=== PATIENT | female | born 1980 | race Caucasian/White ===

== ENCOUNTER 2018-06-10 20:19 | Observation (INO) ==
[2018-06-10 21:12] LABS: BASO# 0.05 X1000 (0.0-0.2); BASO% 0.3 % (0.0-0.8); EOS% 0.7 % (0.0-10.0); HEMATOCRIT 44.9 % (37.0-47.0); HEMOGLOBIN 15.7 g/dL (12.0-16.0); IMM GRAN# 0.07 X1000 (0.0-0.04); IMM GRAN% 0.5 % (0.0-0.5); LYMPH# 5.34 X1000 (1.2-3.4); LYMPH% 35.4 % (20.5-51.1); MCH 32.4 PG (27-31); MCV 92.6 FL (81-99); MONO# 0.75 X1000 (0.11-0.59); MPV 9.8 FL (7.4-10.4); NEUT# 8.77 X1000 (1.4-6.5); NEUT% 58.1 % (42.2-75.2); PLT 400 X1000 (130-400); RBC 4.85 XMIL (4.2-5.4); WBC 15.08 X1000 (4.8-10.8)
--- NOTE | 2018-06-10 21:13 | PROVIDER DOCUMENTATION ---
This chart was entered by Fina Rodriguez Scribe, acting as scribe for Altaf Edge MD. HPI-Psychological Disorder - General Chief Complaint: Overdose Stated Complaint: OVERDOSE Time Seen by Provider: 06/10/18 20:57 Source: patient, family Allergies/Adverse Reactions: Patient Allergies Allergy/AdvReac Type Severity Reaction Status Date / Time No Known Allergies Allergy Verified 12/01/17 23:47 Home Medications: Home Medication List Medication Instructions Recorded Confirmed Last Taken Type Alprazolam [Xanax] 0.5 mg PO 4XDAY PRN 07/19/13 12/01/17 12/01/17 22:00 History Duloxetine [Cymbalta] 20 mg PO DAILY 07/19/13 12/01/17 12/01/17 07:00 History Zolpidem [Ambien] 10 mg PO QHS 07/19/13 12/01/17 12/01/17 22:00 History - History of Present Illness-Psych Nature of Presenting Problem: pt is a 37 yr old white female with history of depression,anxiety, HTN, and multiple suicide attempts presenting with complaint of intentional overdose, pt reports she took up to 15 12.5mg Ambien at 7pm tonight. Patient also drank up to 10 12oz beers tonight. Patient arrives by private car with drowsiness and GCS of 15. Psychiatric Complaints: reports: depressed, suicidal ideation. denies: homicidal thoughts Previous psych related hospitalizations?: Yes Patient arrived by:: private car Similar Symptoms Previously?: Yes Recently seen or treated by another doctor?: No Review of Systems - Adult - REVIEW OF SYSTEMS - ADULT Constitutional: denies: chills, fever Eyes: denies: blurred vision Ears, Nose, Mouth & Throat: denies: ear discharge, hearing loss, tinnitus, throat pain Cardiovascular: denies: chest pain Respiratory: reports: see HPI, shortness of breath Gastrointestinal: denies: abdominal pain, nausea, vomiting Genitourinary: reports: dysuria Musculoskeletal: reports: no symptoms reported Integumentary: reports: no symptoms reported Neurological: reports: no symptoms reported Psychiatric: reports: anxiety Endocrine: reports: no symptoms reported Hematologic/Lymphatic: reports: no symptoms reported Allergic/Immunologic: reports: no symptoms reported, see HPI All Other Systems: Reviewed and Negative Past History - Adult - PAST MEDICAL HISTORY-ADULT Review of Records: reports: Old Records Reviewed, Nursing Assessment Review, Medications Reviewed, Social history reviewed & non-contributory. Major Childhood Illnesses: reports: denies history Cardiovascular: reports: denies history Respiratory: reports: denies history Gastrointestinal: reports: denies history Obstetrical/Gynecological: reports: denies history Genitourinary: reports: denies history Musculoskeletal: reports: denies history Neurological: reports: denies history Psychiatric: reports: anxiety, depression, suicide attempt Endocrine/Immune: reports: denies history Other Conditions: reports: denies history - PRIOR SURGERIES/PROCEDURES Surgical/Procedure History: reports: reviewed, not pertinent - IMMUNIZATION STATUS Childhood Immunizations: See Nurse Assessment Flu Vaccine: See Nurse Assessment - FAMILY HISTORY Family History: reviewed, not pertinent - SOCIAL HISTORY Smoking: cigarettes Provider spent 3-5 mins advising pt. on dangers of tobacco.: Discussed manners to quit use, and f/u contacts for add'l counseling. Living Situation: family Physical Exam-Psych Focus - Physical Exam-Psych Initial Vital Signs Reviewed: Yes Appearance: no apparent distress, alert Neurological: depressed affect Behavior/Eye Contact/Speech: cooperative, avoids eye contact, decreased rate of speech Thoughts/Hallucinations: no apparent hallucination HENMT: normocephalic/atraumatic, moist mucous membranes, normal ENT inspection Neck: non-tender, full range of motion, supple, normal inspection Respiratory: chest non-tender, lungs clear, normal breath sounds Cardiovascular: normal peripheral pulses, no edema, tachycardia Abdominal Exam: normal bowel sounds, non tender, soft Lymphatic: no adenopathy Back Exam: normal inspection, no CVA tenderness, no vertebral tenderness Extremity: normal range of motion, non-tender, normal gait, normal inspection Integumentary: normal color, normal turgor, warm/dry Progress - PLAN OF CARE/RESULTS Progress/Plan/Lab Results: Vital Signs - 8 hr 06/10/18 20:53 06/10/18 20:57 Temperature 98.5 F Pulse Rate 125 H 117 H Respiratory Rate 21 24 Blood Pressure 174/122 182/150 O2 Sat by Pulse Oximetry 96 95 Bedside Urine ED: Urine Bedside Start: 06/10/18 21:06 Freq: ORDERED Status: Inactive Protocol: Activity Type Activity Date Activity User E-Sign Co-Sign Detail Recorded Client Recorded Date Recorded By Edit Status 06/10/18 22:20 [id number] Active=>Inactive [id number] 06/10/18 22:20 [id number] Laboratory Results - last 24 hr 06/10/18 06/10/18 06/10/18 20:35 20:35 20:35 WBC 15.08 H RBC 4.85 Hgb 15.7 Hct 44.9 MCV 92.6 MCH 32.4 H MCHC 35.0 RDW Std Deviation 13.0 Plt Count 400 MPV 9.8 Immature Gran % (Auto) 0.5 Neut % (Auto) 58.1 Lymph % (Auto) 35.4 [place] % (Auto) 5.0 Eos % (Auto) 0.7 Baso % (Auto) 0.3 Immature Gran # (Auto) 0.07 H Neut # (Auto) 8.77 H Lymph # (Auto) 5.34 H [place] # (Auto) 0.75 H Eos # (Auto) 0.10 Baso # (Auto) 0.05 Specimen Type Sample Site pH pCO2 pO2 HCO3 Base Excess Oxyhemoglobin ABG O2 Sat (Calculated) ABG O2 Saturation ABG Carboxyhemoglobin ABG Methemoglobin Primo Test A-a O2 Difference Total Hemoglobin Lactate Blood Gas Modality FiO2 % Sodium 142 Potassium 3.8 Chloride 107 Carbon Dioxide 21 L Anion Gap 14 BUN 6 L Creatinine 0.7 Estimated GFR/1.73 m2 > 60 BUN/Creatinine Ratio 9 Glucose 140 H Calculated Osmolality 283 Calcium 9.8 Total Bilirubin 0.20 AST 21 ALT 22 Alkaline Phosphatase 96 Total Protein 7.9 Albumin 4.7 Globulin 3.0 Albumin/Globulin Ratio 1.0 Urine Test Salicylates < 3.00 L Urine Opiates Screen Ur Oxycodone Screen Urine Methadone Screen U Propoxyphene Qual Acetaminophen Ur Barbituates Screen Ur Tricyclics Screen Ur Phencyclidine Scrn Ur Amphetamines Screen U Methamphetamines Scrn U Benzodiazepines Scrn Urine Cocaine Screen U Cannabinoids Screen Plasma/Serum Ethyl Alc 198 H 06/10/18 06/10/18 06/10/18 20:35 20:50 20:50 WBC RBC Hgb Hct MCV MCH MCHC RDW Std Deviation Plt Count MPV Immature Gran % (Auto) Neut % (Auto) Lymph % (Auto) [place] % (Auto) Eos % (Auto) Baso % (Auto) Immature Gran # (Auto) Neut # (Auto) Lymph # (Auto) [place] # (Auto) Eos # (Auto) Baso # (Auto) Specimen Type Sample Site pH pCO2 pO2 HCO3 Base Excess Oxyhemoglobin ABG O2 Sat (Calculated) ABG O2 Saturation ABG Carboxyhemoglobin ABG Methemoglobin Primo Test A-a O2 Difference Total Hemoglobin Lactate Blood Gas Modality FiO2 % Sodium Potassium Chloride Carbon Dioxide Anion Gap BUN Creatinine Estimated GFR/1.73 m2 BUN/Creatinine Ratio Glucose Calculated Osmolality Calcium Total Bilirubin AST ALT Alkaline Phosphatase Total Protein Albumin Globulin Albumin/Globulin Ratio Urine Test NEGATIVE Salicylates Urine Opiates Screen NONE DETECTED Ur Oxycodone Screen NONE DETECTED Urine Methadone Screen NONE DETECTED U Propoxyphene Qual NONE DETECTED Acetaminophen < 1.2 L Ur Barbituates Screen NONE DETECTED Ur Tricyclics Screen NONE DETECTED Ur Phencyclidine Scrn NONE DETECTED Ur Amphetamines Screen NONE DETECTED U Methamphetamines Scrn NONE DETECTED U Benzodiazepines Scrn NONE DETECTED Urine Cocaine Screen NONE DETECTED U Cannabinoids Screen NONE DETECTED Plasma/Serum Ethyl Alc 06/10/18 21:21 WBC RBC Hgb Hct MCV MCH MCHC RDW Std Deviation Plt Count MPV Immature Gran % (Auto) Neut % (Auto) Lymph % (Auto) [place] % (Auto) Eos % (Auto) Baso % (Auto) Immature Gran # (Auto) Neut # (Auto) Lymph # (Auto) [place] # (Auto) Eos # (Auto) Baso # (Auto) Specimen Type ARTERIAL Sample Site R BRACHIAL pH 7.36 pCO2 34 L pO2 75 HCO3 20.4 Base Excess -5.3 L Oxyhemoglobin 86.0 L* ABG O2 Sat (Calculated) 18.6 ABG O2 Saturation 96.2 ABG Carboxyhemoglobin 9.60 H* ABG Methemoglobin 1.0 Primo Test NO A-a O2 Difference 32.0 Total Hemoglobin 15.4 Lactate 2.60 H Blood Gas Modality ROOM AIR FiO2 % 21.0 Sodium Potassium Chloride Carbon Dioxide Anion Gap BUN Creatinine Estimated GFR/1.73 m2 BUN/Creatinine Ratio Glucose Calculated Osmolality Calcium Total Bilirubin AST ALT Alkaline Phosphatase Total Protein Albumin Globulin Albumin/Globulin Ratio Urine Test Salicylates Urine Opiates Screen Ur Oxycodone Screen Urine Methadone Screen U Propoxyphene Qual Acetaminophen Ur Barbituates Screen Ur Tricyclics Screen Ur Phencyclidine Scrn Ur Amphetamines Screen U Methamphetamines Scrn U Benzodiazepines Scrn Urine Cocaine Screen U Cannabinoids Screen Plasma/Serum Ethyl Alc Orders Category Date Time Status Admit - [facility] Routine AdmDCTranf 06/10/18 22:20 Active Activity - Strict Bedrest ORDERED Care 06/10/18 22:20 Active Cardiac Monitoring DIRECTED Care 06/10/18 21:04 Completed Misc. NRSG Communication Order DIRECTED Care 06/10/18 21:04 Active Misc. NRSG Communication Order DIRECTED Care 06/10/18 22:22 Active Neurological Check Q4H Care 06/10/18 22:21 Active Resuscitation Status Routine Care 06/10/18 22:20 Ordered Vital Signs Order ROUTINE Care 06/10/18 22:20 Active Z-Document. for Tele Applied ORDERED Care 06/10/18 22:22 Active NPO Diet 06/10/18 22:22 Active ABG [RESP] Routine Lab 06/10/18 21:21 Completed ACETAMINOPHEN [TDM] Stat Lab 06/10/18 20:35 Completed ALCOHOL BLOOD Stat Lab 06/10/18 20:35 Completed CBC WITH ELECTRONIC DIFF [HEME] Stat Lab 06/10/18 20:35 Completed CMP [COMPREHENSIVE METABOLIC PANEL] [CHEM] Stat Lab 06/10/18 20:35 Completed TEST-URINE [PREG] Stat Lab 06/10/18 20:50 Completed SALICYLATES [TDM] Stat Lab 06/10/18 20:35 Completed URINE DRUG SCREEN PL Stat Lab 06/10/18 20:50 Completed 0.9% Sodium Chloride Inj [Ns] 1,000 ml Med 06/10/18 22:20 Active IV 100 mls/hr Telemetry [OM.EQ] Routine Oth 06/10/18 22:20 Active Transfer/Admit Order [TRANSFER] Routine Transfer 06/10/18 22:22 Completed Result Diagrams: 06/10/18 20:35 06/10/18 20:35 Departure - Departure Date of Disposition Decision: 06/10/18 Time of Disposition Decision: 23:45 DIAGNOSIS: Drug overdose, Severe depression Alcohol intoxication Qualifiers: Complication of substance-induced condition: uncomplicated Qualified Code(s): F10.920 - Alcohol use, unspecified with intoxication, uncomplicated Disposition: ADMITTED INPATIENT 09 Certified Medical Emergency: Emergent Condition: Stable - Critical Care Note This patient required my direct & personal management of CC.: Yes Attestation - Physician/ JEFF Attestation Patient care was provided by Advanced Practice Provider:: No The physician spent face to face time with patient:: Yes Advanced Practice Provider documentation review:: Supervising physician onsite and consulted in the evaluation and care of this patient. The physician did have a face to face encounter with the patient. This chart was documented by the indicated scribe, (Fina Rodriguez Scribe) and accurately reflects the services I performed and decisions made by me, Altaf Edge MD, as attested by the provider's signature.
[2018-06-10 21:23] LABS: AGAP 14; ALBUMIN 4.7 g/dL (3.5-5.0); ALKALINE PHOSPHATASE 96 U/L (32-104); BUN 6 mg/dL (8-22); CALCIUM 9.8 mg/dL (8.8-10.2); CHLORIDE 107 mmol/L (98-107); COSMO 283; CREATININE 0.7 mg/dL (0.5-0.9); ESTIMATED GFR > 60; GLUCOSE 140 mg/dL (70-104); GOT 21 U/L (10-30); GPT 22 U/L (10-36); POTASSIUM 3.8 mmol/L (3.5-5.1); SALICYLATES < 3.00 mg/dL (3-10); SODIUM 142 mmol/L (136-145); TCO2 21 mmol/L (25-35); TOTAL PROTEIN 7.9 g/dL (6.3-8.3)
[2018-06-10 21:29] LABS: UR AMPHETAMINES QUAL NONE DETECTED (NONE DETECT); UR BARBITUATES QUAL NONE DETECTED (NONE DETECT); UR BENZODIAZEPIN QUAL NONE DETECTED (NONE DETECT); UR CANNABINOIDS QUAL NONE DETECTED (NONE DETECT); UR COCAINE QUAL NONE DETECTED (NONE DETECT); UR METHADONE QUAL NONE DETECTED (NONE DETECT); UR METHAMPHETAMINE QUAL NONE DETECTED (NONE DETECT); UR OPIATES QUAL NONE DETECTED (NONE DETECT); UR OXYCODONE QUAL NONE DETECTED (NONE DETECT); UR PCP QUAL NONE DETECTED (NONE DETECT); UR PROPOXYPHENE QUAL NONE DETECTED (NONE DETECT); UR TCA QUAL NONE DETECTED (NONE DETECT)
[2018-06-10 21:34] LABS: BE -5.3 mmoll (-3.0-3.0); BLOOD TYPE ARTERIAL; HCO3-(ACT) 20.4 mmoll (20.0-26.0); O2(CT) 18.6 mL/dL (15.0-23.0); PCO2(98.6) 34 mmHg (35-45); PO2(98.6) 75 mmHg (60-100); SAMPLE BLOOD; SAO2 96.2 % (95.0-100.0); THB 15.4 g/dL (11.5-17.4); pH(98.6) 7.36 (7.35-7.45)
[2018-06-10 21:39] LABS: ALLEN TEST NO; MODALITY ROOM AIR
[2018-06-10] MEDS ORDERED: NS 1,000 ML IV ONE (22:20)
[2018-06-11 01:47] LABS: BILIRUBIN URINE NEGATIVE (NEGATIVE); BLOOD URINE NEGATIVE (NEGATIVE); CLARITY CLEAR (CLEAR); COLOR YELLOW; GLUCOSE URINE NEGATIVE (NEGATIVE); KETONE URINE NEGATIVE (NEGATIVE); LEUKOCYTES URINE NEGATIVE (NEGATIVE); NITRITE URINE NEGATIVE (NEGATIVE); PH URINE 6.5; PROTEIN URINE NEGATIVE (NEGATIVE); UROBILINOGEN URINE NORMAL
[2018-06-11 01:48] LABS: URINE SOURCE CATH
[2018-06-11 01:53] LABS: URINE RBC <10 /HPF (<10); URINE WBC <10 /HPF (<10)
[2018-06-11 01:54] LABS: URINE BACTERIA NEGATIVE /HFP; URINE EPITHELIAL CELLS <10 /HPF (<10)
[2018-06-11 10:06] LABS: AGAP 11; BUN 9 mg/dL (8-22); CALCIUM 9.2 mg/dL (8.8-10.2); CHLORIDE 107 mmol/L (98-107); COSMO 280; CREATININE 0.7 mg/dL (0.5-0.9); ESTIMATED GFR > 60; GLUCOSE 125 mg/dL (70-104); SODIUM 140 mmol/L (136-145); TCO2 22 mmol/L (25-35)
[2018-06-11] MEDS ORDERED: NS 1,000 ML IV ONE (10:58)
[2018-06-11] MEDS ORDERED: NICODERM PATCH TD SCH (11:00)
--- NOTE | 2018-06-11 11:28 | HISTORY AND PHYSICAL ---
PRIMARY CARE PHYSICIAN: Arlene Davalos MD. CHIEF COMPLAINT: Suicide attempt. HISTORY OF PRESENT ILLNESS: Mrs. Garcia is a 37-year-old female with a history of anxiety and depression with suicidality in the past, who presents to the ER with intentional overdose with the intent for suicide. Apparently, she took around 10-15 Ambien pills then had up to 10 beers yesterday. Her brought her to the ER after he found out what happened, she had multiple bouts of vomiting in the ER and was altered but overall was hemodynamically stable, and she was placed in the ICU after admission. When asked the reasoning for suicidality, she would only tell us that she had "a bad day" yesterday. She is not very forthcoming with underlying etiology or psychosocial stressors, her , who is at the bedside, states that her father was murdered when she was 14 and this month arteaga anniversary for that time and that could be contributing. Currently, she denies any symptoms. She is resting in bed comfortably eating breakfast. A [facility] consult has been placed. PAST MEDICAL HISTORY: 1. Previous suicide attempts in the past. 2. Anxiety and depression. 3. Nicotine dependence. PAST SURGICAL HISTORY: None. SOCIAL HISTORY: Smokes a pack a day. Denies illicit drug use. Reports social alcohol use. She is . is at the bedside. They have a 14-year-old daughter, she stays at home. FAMILY HISTORY: Father from gunshot wound. He had a history of illicit drug use as well apparently. HOME MEDICATIONS: Xanax 0.5 mg p.o. 4 times a day as needed, Cymbalta 20 mg daily, Ambien 10 mg p.o. at bedtime. ALLERGIES: No known drug allergies. REVIEW OF SYSTEMS: Full 14-point review of systems obtained and found to be negative with the exception of the HPI. PHYSICAL EXAMINATION: VITAL SIGNS: Blood pressure is 180/95, heart rate is 110, respiratory rate is 23, O2 saturation 97% on room air, temperature is 98 degrees Fahrenheit. GENERAL: This is an overweight female lying in the hospital bed watching TV, eating breakfast, in no acute distress. NEUROLOGICAL: She is awake. She is alert, and oriented x3. PSYCHIATRIC: Affect is somewhat flat. HEENT: Head is atraumatic and normocephalic. Her pupils are equal, round, and reactive to light. Oral mucosa is moist. NECK: Trachea is midline. There is no JVD. CHEST: Clear to auscultation. CARDIOVASCULAR: Regular rate and rhythm. S1 and S2 is noted. No murmurs, gallops, clicks, or rubs. GASTROINTESTINAL: Soft, nondistended, nontender. Bowel sounds positive. EXTREMITIES: No edema, clubbing, or cyanosis. Pulses are 2+ bilaterally. DIAGNOSTIC DATA: WBC 15.0, hemoglobin 15.7, hematocrit 44.9, platelet count 400. ABG in room air: pH 7.36, CO2 34, O2 75, bicarbonate 20.4, oxyhemoglobin 86, carboxyhemoglobin 9.6. Lactic acid is 2.6. Chemistry: Sodium 142, potassium 3.8, chloride 107, CO2 21, anion gap 14, BUN 6, creatinine 0.7, glucose is 140. LFTs within normal limits. Urinalysis is negative. test is negative. Toxicology is negative with the exception of alcohol, which is 198. IMAGING: None. ASSESSMENT AND PLAN: 1. Suicide attempt: Currently, the patient denies any suicidality. She denies thoughts of hurting other people. We will consult [facility] for any psychiatric input and hold her psychiatric medications for now. We will make sure and provide her with suicide prevention information. We have also advised her against the use of alcohol products as those can exacerbate depression and suicidality. 2. Leukocytosis: Likely reactive, no nidus of infection noted at this time. We will check a CBC again to make sure that this is improved. 3. 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 4. Nicotine dependence. We have advised her against the use of nicotine products. Will write a nicotine patch. Continue cessation education. 5. Alcohol abuse: Level 198. We will recheck to make sure that this has cleared, we have discussed with her the importance of alcohol discontinuation. Repeat ETOH 0. 6. Further recommendations to follow, deep venous thrombosis prophylaxis not needed as the patient is ambulatory. ADDENDUM TO H&P: 1200: [facility] has evaluated Mrs. Garcia and feel that inpatient admission is required due to her suicide attempt. They have stated if she does not transfer willingly, they ([facility]) will order a court hold and have her committed. Mrs. Garcia initially refused to go and became tearful and angry. We were eventually able to calm her down and she agreed to go of her own free will. All of her vitals are stable and repeat labs are unremarkable. IV and stringer catheter will be discontinued and she will be transferred to the care of [facility]. Dictated by AURELIA Glover for Topher Lora MD cc: AURELIA Glover MD Kathy J. Sparacino, MD [facility]
[2018-06-11 11:52] LABS: HEMOGLOBIN 14.4 g/dL (12.0-16.0); MCH 31.6 PG (27-31); MCHC 33.5 g/dL (33-37); MCV 94.5 FL (81-99); MPV 9.5 FL (7.4-10.4); RBC 4.55 XMIL (4.2-5.4); RDW 13.1 % (11.5-14.5); WBC 16.49 X1000 (4.8-10.8)
[2018-06-11] MEDS ORDERED: TYLENOL PO PRN (14:03)
--- NOTE | 2018-06-11 14:56 | EKG Report ---
Test Performed on : 06/10/2018 8:34:24 PM Test Reason : OD Blood Pressure : / mmHG Vent. Rate : 117 BPM Atrial Rate : 117 BPM P-R Int : 164 ms QRS Dur : 080 ms QT Int : 326 ms P-R-T Axes : 045 007 029 degrees QTc Int : 454 ms Sinus tachycardia. Possible Left atrial enlargement Left ventricular hypertrophy Abnormal ECG When compared with ECG of 19-JUL-2013 04:56, No significant change was found Unconfirmed Result
[2018-06-11 15:05] VITALS: BP 140/92
--- NOTE | 2018-06-12 00:01 | HISTORY AND PHYSICAL ---
ADDENDUM: Patient seen and examined by myself. Full note dictated and discussed with nurse practitioner. Patient is a 37-year-old female who, unfortunately, took an intentional overdose of Ambien, stating that she wanted to hurt herself. We will admit her to the hospital. Will observe until Ambien has cleared, then we will consult [facility]. cc: Topher Lora MD
--- NOTE | 2018-06-12 07:31 | DISCHARGE SUMMARY ---
ADMISSION DATE: 06/11/2018 DISCHARGE DATE: 06/11/2018 DISCHARGE DIAGNOSES: 1. Depression. 2. Acute suicide attempt in a patient multiple previous suicide attempts. 3. Chronic anxiety. 4. Chronic depression. CONSULTATIONS: [facility]. PROCEDURES: None. BRIEF HOSPITAL COURSE: The patient is a 37-year-old female who presented to the hospital secondary to an intentional overdose with Ambien. Thankfully, she had an uneventful hospital course. Currently, she is awake, alert. Vital signs are stable. DISPOSITION: Patient is awake. She is alert. She is in no distress. [facility] was consulted and feels that she needs to be transitioned to [facility] to assist with her depression and suicide attempt. Therefore she will be discharged and further disposition made from [facility]. cc: Topher Lora MD
== END 2018-06-11 15:40 ==
LOC: P.ED 20:19 → P.ICU 06-11 00:08 → INTOOBSV 06-11 00:08
PROVIDERS: ATTEND Family Medicine
CPT/HCPCS: 51702; 80048; 80053; 80104; 80196; 80301; 80305; 80307; 80320; 80324; 80329; 81001; 81025; 82003; 82055; 82805; 83605; 83735; 85025; 85027; 93005; 99285; A9270; G0431; G0434; G0477; G0480; G6038; G6039; G6040; J7030